=== PATIENT | female | born 1970 | race Caucasian/White ===

== ENCOUNTER → 2018-09-05 | Outpatient (CLI) | payer OTHER ==
[~2018-09-05] MED LIST: AMIT10 PO; Cipro500 MG PO; Excedrin Extra1 EACH PO; GABA300 PO; GABA600 PO; HYDR1TAB94 PO; IBUP800 PO; Ibuprofen Ib200 MG PO; LEVO750 PO; METF500 PO; METR500 PO; Norco 5-325 Ta1 EACH PO; PANT40 PO
[2018-09-05 19:35] LABS: Anion Gap 8 mmol/L (6-16); Blood Urea Nitrogen 10 mg/dL (8-24); Bun/Creatinine Ratio 17.9 (12.0-20.0); C-REACTIVE PROTEIN, EXT RANGE 0.771 mg/dL (0.000-0.300); CO2, Blood 23 mmol/L (21-32); Calcium, Blood 9.2 mg/dL (8.5-10.1); Chloride, Blood 103 mmol/L (98-108); Creatinine, Blood 0.56 mg/dL (0.40-1.00); Glomerular Filtration Rate >60 (60-); Glucose, Blood 311 mg/dL (70-99); Potassium, Blood 4.2 mmol/L (3.5-5.5); Sodium, Blood 134 mmol/L (136-145)
[2018-09-06 11:56] LABS: Antinuclear Antibody Screen Negative (Negative)
[2018-09-06 14:20] LABS: Rheumatoid Factor, Serum Negative (Negative)
== END | disposition home or self-care (01) ==
LOC: LAB 19:08 → LAB SHORT 19:08
PROVIDERS: Physician Assistant
DX: E11.9 Type 2 diabetes mellitus without complications (principal); M25.539 Pain in unspecified wrist
CPT/HCPCS: 80048; 83036; 85651; 86038; 86140; 86430

== ENCOUNTER 2020-01-29 12:31 | Emergency (ER) | payer OTHER ==
[~2020-01-29] VITALS: Ht 162.6 cm; Wt 64.4 kg
[2020-01-29 13:47] LABS: BASOPHILS PERCENT AUTO 1 % (0-2); EOSINOPHILS ABSOLUTE AUTO 0.22 K/mm3 (0.00-0.68); EOSINOPHILS PERCENT AUTO 2 % (0-6); Hematocrit 45.5 % (33.0-51.0); Hemoglobin 14.8 g/dL (11.5-16.0); IMMATURE GRAN ABSOLUTE AUTO 0.06 K/mm3 (0.00-0.10); IMMATURE GRAN PERCENT AUTO 1 % (0-1); LYMPHOCYTES ABSOLUTE AUTO 3.19 K/mm3 (0.84-5.20); LYMPHOCYTES PERCENT AUTO 33 % (21-46); MONOCYTES ABSOLUTE AUTO 0.43 K/mm3 (0.16-1.47); MONOCYTES PERCENT AUTO 5 % (4-13); Mean Corpuscular HGB 28.6 pg (26.0-34.0); Mean Corpuscular HGB Conc 32.5 g/dL (31.5-36.5); Mean Corpuscular Volume 88 fL (80-100); Mean Platelet Volume 10.6 fL (9.1-12.4); NEUTROPHILS ABSOLUTE AUTO 5.59 K/mm3 (1.96-9.15); NEUTROPHILS PERCENT AUTO 58 % (41-73); Platelet Count 271 K/mm3 (150-400); RDW Coefficient Variation 13.5 % (11.7-14.2); RDW Standard Deviation 43.2 fL (35.1-46.3); Red Blood Cell Count 5.18 M/mm3 (3.80-5.20); White Blood Cell Count 9.59 K/mm3 (4.00-11.30)
[2020-01-29 13:59] LABS: Appearance, Urine Cloudy (Clear); Bilirubin, Urine Neg (Neg); Blood, Urine 2+ (Neg); Color, Urine Yellow (P-Yellow); Glucose Qualitative, Urine 4+ (Neg); Ketones, Urine 1+ (Neg); Leukocyte Esterase, Urine 3+ (Neg); Nitrite, Urine Pos (Neg); Protein, Urine 2+ (Neg); Urobilinogen, Urine 1+ (Normal)
[2020-01-29 14:03] LABS: Alanine Aminotransfer (ALT/SGP 41 U/L (12-78); Albumin, Blood 3.9 g/dL (3.4-5.0); Alk Phos 200 U/L (50-136); Anion Gap 3 mmol/L (6-16); Aspartate Aminotrans (AST/SGOT 25 U/L (12-37); Bilirubin, Total 0.6 mg/dL (0.1-1.0); Blood Urea Nitrogen 15 mg/dL (8-24); Bun/Creatinine Ratio 24.6 (12.0-20.0); CO2, Blood 27 mmol/L (21-32); Calcium, Blood 9.6 mg/dL (8.5-10.1); Chloride, Blood 105 mmol/L (98-108); Creatinine, Blood 0.61 mg/dL (0.40-1.00); Globulin, Blood 3.9 g/dL (2.2-4.0); Glomerular Filtration Rate >60 (60-); Glucose, Blood 334 mg/dL (70-99); Sodium, Blood 135 mmol/L (136-145); Total Protein, Blood 7.8 g/dL (6.4-8.2)
[2020-01-29 14:42] LABS: Bacteria Many /hpf; Squamous Epithelial Cells Few /hpf (Few); White Blood Cells, Urine TNTC /hpf (0-5)
[2020-01-29] MEDS ORDERED: NOVOLOG FL100 UNIT/3 (15:21)
[2020-01-29] MEDS ORDERED: BASAGLAR K100 UNIT/1 (15:22)
[2020-01-29] MEDS ORDERED: Norco 5-325 Ta1 EACH PO (15:56)
[2020-01-29] MEDS ORDERED: CEPH500 PO (15:56)
[2020-01-29] MEDS ORDERED: Pyridium200 MG PO (15:56)
== END 2020-01-29 16:09 | disposition home or self-care (01) ==
LOC: ER 12:31
PROVIDERS: Emergency Medicine
DX: N39.0 Urinary tract infection, site not specified (principal); E11.9 Type 2 diabetes mellitus without complications; F17.210 Nicotine dependence, cigarettes, uncomplicated
CPT/HCPCS: 36415; 80053; 81001; 85025; 87077; 87086; 87186; 99284

== ENCOUNTER 2020-04-28 11:39 | Day surgery (SDC) | payer OTHER ==
[~2020-04-28] VITALS: Ht 162.6 cm; Wt 65.0 kg
[~2020-04-28 11:39] MED LIST changes: +ALBU90OI INH; +ATOR80 PO; +BASAGLAR K100 UNIT/1; +BASAGLAR K100 UNIT/7 SC; +CEPH500 PO; +MELATONIN5 M1; +NOVOLOG FL100 UNIT/3; +Pyridium200 MG PO; +SUMA25 PO
== END 2020-04-28 14:12 | disposition home or self-care (01) ==
LOC: ORSCSDS 11:39
PROVIDERS: Internal Medicine Gastroenterology
PROC: 0DBM8ZX Excision of Descending Colon, Via Natural or Artificial Opening Endoscopic, Diagnostic (ICD-10-PCS; principal; 2020-04-28 10:45)
PROC: 0DB78ZX Excision of Stomach, Pylorus, Via Natural or Artificial Opening Endoscopic, Diagnostic (ICD-10-PCS; principal; 2020-04-28 10:45)
PROC: 0DB58ZX Excision of Esophagus, Via Natural or Artificial Opening Endoscopic, Diagnostic (ICD-10-PCS; principal; 2020-04-28 10:45)
DX: K22.70 Barrett's esophagus without dysplasia (principal); K44.9 Diaphragmatic hernia without obstruction or gangrene; D12.4 Benign neoplasm of descending colon; R19.4 Change in bowel habit; R11.10 Vomiting, unspecified; K64.1 Second degree hemorrhoids; K31.89 Other diseases of stomach and duodenum; I10 Essential (primary) hypertension; E78.5 Hyperlipidemia, unspecified; J44.9 Chronic obstructive pulmonary disease, unspecified; F17.210 Nicotine dependence, cigarettes, uncomplicated; Z79.4 Long term (current) use of insulin; Z79.899 Other long term (current) drug therapy; E11.43 Type 2 diabetes mellitus with diabetic autonomic (poly)neuropathy; E11.65 Type 2 diabetes mellitus with hyperglycemia; K31.84 Gastroparesis
CPT/HCPCS: 82947; 88305; 88313; 88342; J2250; J2704; J7120

== ENCOUNTER → 2020-09-29 | Outpatient (CLI) | payer OTHER ==
[2020-09-29 18:59] LABS: Appearance, Urine Clear (Clear); Bilirubin, Urine Neg (Neg); Blood, Urine Neg (Neg); Color, Urine Yellow (P-Yellow); Glucose Qualitative, Urine 4+ (Neg); Ketones, Urine Neg (Neg); Leukocyte Esterase, Urine 2+ (Neg); Nitrite, Urine Neg (Neg); Protein, Urine 1+ (Neg); Urobilinogen, Urine NORM (Normal)
[2020-09-29 19:09] LABS: Bacteria Few /hpf; Red Blood Cells, Urine 0-2 /hpf (0-2); Squamous Epithelial Cells Few /hpf (Few)
== END | disposition home or self-care (01) ==
LOC: LAB 14:30 → LAB SHORT 14:30
PROVIDERS: Family Medicine
DX: R10.31 Right lower quadrant pain (principal)
CPT/HCPCS: 81001; 87077; 87086; 87186

== ENCOUNTER 2023-03-29 12:57 | Emergency (ER) | payer OTHER ==
[~2023-03-29] VITALS: Ht 162.6 cm; Wt 52.2 kg
[2023-03-29 13:42] LABS: BASOPHILS PERCENT AUTO 1 % (0-2); EOSINOPHILS ABSOLUTE AUTO 0.22 K/mm3 (0.00-0.68); EOSINOPHILS PERCENT AUTO 3 % (0-6); Hematocrit 43.1 % (33.0-51.0); Hemoglobin 14.3 g/dL (11.5-16.0); IMMATURE GRAN ABSOLUTE AUTO 0.01 K/mm3 (0.00-0.10); IMMATURE GRAN PERCENT AUTO 0 % (0-1); LYMPHOCYTES ABSOLUTE AUTO 2.79 K/mm3 (0.84-5.20); LYMPHOCYTES PERCENT AUTO 37 % (21-46); MONOCYTES ABSOLUTE AUTO 0.46 K/mm3 (0.16-1.47); MONOCYTES PERCENT AUTO 6 % (4-13); Mean Corpuscular HGB 28.8 pg (26.0-34.0); Mean Corpuscular HGB Conc 33.2 g/dL (31.5-36.5); Mean Corpuscular Volume 87 fL (80-100); Mean Platelet Volume 10.5 fL (9.1-12.4); NEUTROPHILS ABSOLUTE AUTO 4.06 K/mm3 (1.96-9.15); NEUTROPHILS PERCENT AUTO 53 % (41-73); Platelet Count 231 K/mm3 (150-400); RDW Coefficient Variation 13.2 % (11.7-14.2); RDW Standard Deviation 41.3 fL (35.1-46.3); Red Blood Cell Count 4.97 M/mm3 (3.80-5.20); White Blood Cell Count 7.64 K/mm3 (4.00-11.30)
[2023-03-29 14:02] LABS: Albumin, Blood 3.6 g/dL (3.4-5.0); Albumin/Globulin Ratio 0.9 (0.8-1.8); Bilirubin, Total 0.4 mg/dL (0.1-1.0); Calcium, Blood 9.2 mg/dL (8.5-10.1); Creatinine, Blood 0.53 mg/dL (0.40-1.00); Potassium, Blood 4.8 mmol/L (3.5-5.5); Total Protein, Blood 7.6 g/dL (6.4-8.2)
[2023-03-29 15:02] LABS: Source, Urine Clean Catch
[2023-03-29 15:21] LABS: Appearance, Urine Clear (Clear); Bilirubin, Urine Neg (Neg); Blood, Urine Neg (Neg); Color, Urine Yellow (P-Yellow); Glucose Qualitative, Urine 4+ (Neg); Ketones, Urine Neg (Neg); Leukocyte Esterase, Urine 1+ (Neg); Nitrite, Urine Neg (Neg); Protein, Urine Neg (Neg); Specific Gravity, Urine 1.015 (1.003-1.022); Urobilinogen, Urine NORM (Normal)
[2023-03-29 16:00] LABS: Bacteria Mod /hpf; Mucus Light (0-Heavy); Red Blood Cells, Urine 0-2 /hpf (0-2); Squamous Epithelial Cells Few /hpf (Few); Transitional Epithelial Cells Rare /hpf (0-Rare)
[2023-03-29] MEDS ORDERED: ATOR40TA PO (16:13)
[2023-03-29 16:29] LABS: International Normalized Ratio 0.93; Prothrombin Time Results 9.8 Sec (9.7-11.5)
[2023-03-29 17:00] VITALS: BP 142/96
[2023-03-29] MEDS ORDERED: Percocet 5-3251 EACH PO (17:10)
[2023-03-29] MEDS ORDERED: ONDA4ODT MM (17:10)
[2023-03-29] MEDS ORDERED: CEFD300 PO (17:13)
== END 2023-03-29 17:46 | disposition home or self-care (01) ==
LOC: ER 12:57
PROVIDERS: Emergency Medicine
DX: D73.5 Infarction of spleen (principal); N39.0 Urinary tract infection, site not specified; I73.9 Peripheral vascular disease, unspecified; E11.9 Type 2 diabetes mellitus without complications; E78.00 Pure hypercholesterolemia, unspecified; M79.7 Fibromyalgia; F17.210 Nicotine dependence, cigarettes, uncomplicated; Z79.4 Long term (current) use of insulin; Z79.84 Long term (current) use of oral hypoglycemic drugs; Z79.899 Other long term (current) drug therapy
CPT/HCPCS: 74177; 80053; 81001; 83690; 85025; 85610; 85730; 87077; 87086; 87147; 87186; 93005; 93010; 99284-25; J2270; J2405; Q9967

== ENCOUNTER 2023-09-15 13:47 | Inpatient (IN) | payer OTHER ==
[~2023-09-15] VITALS: Ht 162.6 cm; Wt 49.6 kg
[~2023-09-15 13:47] MED LIST changes: +ATOR40TA PO; +CEFD300 PO; +ONDA4ODT MM; +Percocet 5-3251 EACH PO
[2023-09-15 15:15] LABS: Source, Urine Clean Catch
[2023-09-15 15:18] LABS: Hematocrit 40.2 % (33.0-51.0); Hemoglobin 13.9 g/dL (11.5-16.0); Mean Corpuscular HGB 29.8 pg (26.0-34.0); Mean Corpuscular HGB Conc 34.6 g/dL (31.5-36.5); Mean Corpuscular Volume 86 fL (80-100); Mean Platelet Volume 12.3 fL (9.1-12.4); Platelet Count 190 K/mm3 (150-400); RDW Coefficient Variation 12.9 % (11.7-14.2); RDW Standard Deviation 40.7 fL (35.1-46.3); Red Blood Cell Count 4.66 M/mm3 (3.80-5.20); White Blood Cell Count 11.44 K/mm3 (4.00-11.30)
[2023-09-15 15:29] LABS: Appearance, Urine Hazy (Clear); Bilirubin, Urine Neg (Neg); Blood, Urine 3+ (Neg); Color, Urine Yellow (P-Yellow); Glucose Qualitative, Urine 4+ (Neg); Ketones, Urine 3+ (Neg); Leukocyte Esterase, Urine 1+ (Neg); Nitrite, Urine Pos (Neg); Protein, Urine 1+ (Neg); Urobilinogen, Urine NORM (Normal)
[2023-09-15 15:31] LABS: Magnesium, Blood 2.2 mg/dL (1.6-2.4)
[2023-09-15 15:35] LABS: Albumin, Blood 2.6 g/dL (3.4-5.0); Albumin/Globulin Ratio 0.5 (0.8-1.8); Bun/Creatinine Ratio 20.2 (12.0-20.0); Calcium, Blood 9.8 mg/dL (8.5-10.1); Creatinine, Blood 0.59 mg/dL (0.40-1.00); Globulin, Blood 5.1 g/dL (2.2-4.0); Potassium, Blood 3.4 mmol/L (3.5-5.5); Total Protein, Blood 7.7 g/dL (6.4-8.2)
[2023-09-15 16:04] LABS: Bacteria Many /hpf; Mucus Light (0-Heavy); Squamous Epithelial Cells Few /hpf (Few); White Blood Cells, Urine 25-50 /hpf (0-5)
[2023-09-15] MEDS ORDERED: Metoclopramide HCl 5MG / ML 2ML Vial IV ONE (16:05)
[2023-09-15] MEDS ORDERED: HYDROmorphone HCl/Pf 1MG SYR IV ONE (16:05)
[2023-09-15] MEDS ORDERED: NS 1,000 ML IV SCH ×2 (16:05→20:05)
[2023-09-15] MEDS ORDERED: CefTRIAXone Sodium 1,000 MG in NS 100 ML IV ONE (16:05)
[2023-09-15 16:09] LABS: BAND PERCENT MAN 13 % (0-8); BASOPHILS PERCENT MAN 0 % (0-2); EOSINOPHILS PERCENT MAN 0 % (0-6); LYMPHOCYTES ABSOLUTE MAN 1.02 K/mm3 (0.84-5.20); LYMPHOCYTES PERCENT MAN 9 % (21-46); MONOCYTES ABSOLUTE MAN 0.34 K/mm3 (0.16-1.47); MONOCYTES PERCENT MAN 3 % (4-13); NEUTROPHILS ABSOLUTE MAN 10.06 K/mm3 (1.96-9.15); SEG NEUTROPHILS PERCENT MAN 75 % (41-73); TOTAL CELLS COUNTED 100
[2023-09-15] MEDS ORDERED: Lactated Ringer's 1,000 ML IV SCH (17:35)
[2023-09-15] MEDS ORDERED: FentaNYL Citrate 50 MCG/ML 2 ML Injection IV PRN (17:35)
[2023-09-15] MEDS ORDERED: Acetaminophen 325 MG TABLET PO PRN (17:40)
[2023-09-15] MEDS ORDERED: Ondansetron HCl 2 MG / ML 2ML Vial IV PRN (17:40)
[2023-09-15] MEDS ORDERED: OxyCODONE HCL 5 MG TAB PO PRN (17:40)
[2023-09-15] MEDS ORDERED: SUMAtriptan succinate 50 MG Tab PO PRN (17:45)
[2023-09-15] MEDS ORDERED: Albuterol 2.5 MG/3 ML VIAL INH PRN (17:45)
[2023-09-15] MEDS ORDERED: NS 500 ML IV ONE (18:00)
[2023-09-15] MEDS ORDERED: Potassium Chloride 20 MEQ TabCR PO ONE (18:00)
[2023-09-15] MEDS ORDERED: Insulin Glargine-Yfgn 100 Unit/mL 3 ML SYR SC ONE (18:00)
[2023-09-15] MEDS ORDERED: Ketorolac Tromethamine 15mg Vial IV PRN (18:05)
[2023-09-15 18:33] LABS: U Amphetamine Screen Not Detected
[2023-09-15 18:34] LABS: U Barbituate Screen Not Detected; U Benzodiazapine Screen Not Detected; U Buprenorphine Screen Not Detected; U Cannabinoids Screen Not Detected; U Cocaine Screen Not Detected; U Methadone Screen Not Detected; U Methamphetamine Screen Not Detected; U Opiates Screen Not Detected; U Oxycodone Screen Not Detected; U Phencyclidine Screen Not Detected
[2023-09-15] MEDS ORDERED: Insulin Human Lispro 100 Units/ML 3ML Syringe SC SCH (20:00)
[2023-09-15] MEDS ORDERED: Sennosides 8.6 MG Tab PO SCH (21:00)
[2023-09-15] MEDS ORDERED: Lactobacil 2-S.Thermo-Bifido 1 1 Cap PO SCH (21:00)
[2023-09-15] MEDS ORDERED: Gabapentin 300 MG Cap PO SCH (21:00)
[2023-09-15 21:11] VITALS: BP 144/79
[2023-09-15 21:15] VITALS: BP 144/79
[2023-09-16] VITALS (7 sets, daily range): BP systolic 98–121; BP diastolic 60–81
[2023-09-16 03:52] LABS: Hematocrit 34.3 % (33.0-51.0); Hemoglobin 11.5 g/dL (11.5-16.0); Mean Corpuscular HGB Conc 33.5 g/dL (31.5-36.5); Mean Corpuscular Volume 87 fL (80-100); Mean Platelet Volume 11.5 fL (9.1-12.4); Platelet Count 160 K/mm3 (150-400); RDW Coefficient Variation 13.2 % (11.7-14.2); RDW Standard Deviation 41.9 fL (35.1-46.3); Red Blood Cell Count 3.96 M/mm3 (3.80-5.20); White Blood Cell Count 10.48 K/mm3 (4.00-11.30)
[2023-09-16 04:21] LABS: Albumin/Globulin Ratio 0.5 (0.8-1.8); Bun/Creatinine Ratio 17.8 (12.0-20.0); Calcium, Blood 8.8 mg/dL (8.5-10.1); Creatinine, Blood 0.51 mg/dL (0.40-1.00); Globulin, Blood 3.9 g/dL (2.2-4.0); Potassium, Blood 3.3 mmol/L (3.5-5.5); Total Protein, Blood 5.9 g/dL (6.4-8.2)
[2023-09-16 05:41] LABS: BAND PERCENT MAN 15 % (0-8); BASOPHILS PERCENT MAN 0 % (0-2); EOSINOPHILS PERCENT MAN 1 % (0-6); LYMPHOCYTES ABSOLUTE MAN 1.36 K/mm3 (0.84-5.20); LYMPHOCYTES PERCENT MAN 13 % (21-46); MONOCYTES ABSOLUTE MAN 1.04 K/mm3 (0.16-1.47); MONOCYTES PERCENT MAN 10 % (4-13); NEUTROPHILS ABSOLUTE MAN 7.96 K/mm3 (1.96-9.15); SEG NEUTROPHILS PERCENT MAN 61 % (41-73); TOTAL CELLS COUNTED 100
[2023-09-16] MEDS ORDERED: Pantoprazole Sodium 40 MG Tab PO SCH (06:00)
--- NOTE | 2023-09-16 06:38 | NUR ---
SHIFT SUMMARY PATIENT ALERT AND ORIENTED x4, COOPERATIVE WITH CARES, ABLE TO APPROPRIATELY EXPRESS NEEDS. COMPLAINS OF RIGHT FLANK PAIN - PAIN MANAGED WITH PRN PAIN MEDS PER ORDERS. PLEASE SEE MAR FOR DETAILS. PATIENT ALSO HAS MIGRAINES, SHE TAKES IMITREX AT HOME FOR THIS. ONLY HAD A ONE TIME DOSE AVAILABLE FOR THIS NIGHT. BLOOD GLUCOSE STABLE NOW, LAST 190. Q4 GLUCOSE CHECKS ORDERED. PATIENT APPEARED TO REST COMFORTABLY THROUGHOUT THE NIGHT, INTERMITTENTLY WAKING DUE TO PAIN. NO ACUTE EVENTS THIS SHIFT.
[2023-09-16] MEDS ORDERED: Potassium Chloride 20 MEQ TabCR PO ONE (07:30)
[2023-09-16] MEDS ORDERED: Enoxaparin 40 MG/0.4 ML SYR SC SCH (09:00)
[2023-09-16] MEDS ORDERED: Aspirin 81 MG Chew PO SCH (09:00)
[2023-09-16] MEDS ORDERED: Insulin Glargine-Yfgn 100 Unit/mL 3 ML SYR SC SCH ×2 (09:00→21:00)
[2023-09-16] MEDS ORDERED: Atorvastatin 40 MG Tab PO SCH (09:00)
--- NOTE | 2023-09-16 11:00 | NUR ---
PATIENT REPORTS CONTINUED PAIN THAT REQUIRES MEDICATION ADMINISTRATION DUE TO RIGHT FLANK PAIN. SHE IS A/O X4. ANSWERS QUESTIONS APPROPRIATELY IN FULL SENTENCES. EVEN, NON-LABORED CHEST RISE AND AND FALL NOTED. SHE WAS REMOVED FROM NASAL CANNULA THIS AM, SHE IS NOT ON O2 AT BASELINE. SHE DENIES CP AND SOB. LR WAS D/C THIS AM. SHE HAS A GOOD APPETITE. SINUS RHYTHM NOTED ON MONITOR. SHE IS CURRENTLY RESTING IN BED WITH EYES CLOSED.
[2023-09-16] MEDS ORDERED: SUMAtriptan succinate 50 MG Tab PO PRN (14:15)
[2023-09-16] MEDS ORDERED: Metoclopramide HCl 5MG / ML 2ML Vial IV ONE (15:00)
[2023-09-16] MEDS ORDERED: CefTRIAXone Sodium 1,000 MG in NS 100 ML IV SCH (16:00)
[2023-09-16] MEDS ORDERED: Insulin Human Lispro 100 Units/ML 3ML Syringe SC SCH (16:30)
--- NOTE | 2023-09-16 17:27 | NUR ---
PT HAS COMPLAINED OF MIGRAINE THIS SHIFT, SHE REPORTS HISTORY OF MIGRAINES, SHE WAS TREATED LAST NOC FOR MIGRAINE WITH IMITREX WHICH SHE STATES HELPED FOR AROUND AN HOUR. SHE AGAIN COMPLAINED OF MIGRAINE THIS AFTERNOON SHE WAS TREATED WITH IMITREX AND THEN REGLAN, SHE REPORTS THAT THIS DID NOT RELIEVE MIGRAINE. SHE REPORTS THAT HER FLANK PAIN HAS NOT BEEN BAD ENOUGH TO TAKE ROXICODONE THIS EVENING, SHE STATES "I'D LIKE TO SEE IF I CAN GO WITHOUT IT". HEADACHE IS SEEM TO INCREASE AFTER ROXICODONE HAD WORN OFF FROM THIS AM. SHE OTHERWISE HAS BEEN RESTING WELL IN BED FOR THIS SHIFT. SHE WAS AFEBRILE T/O THE DAY, WITH SINUS RHYTHM. THIS EVEN BEGAN TO RUN A FEVER, SHE WAS TREATED WITH TYLENOL FOR FEVER, WILL REASSESS TEMPERATUTE
[2023-09-17 00:11] VITALS: BP 93/66
[2023-09-17 03:49] LABS: Hematocrit 30.7 % (33.0-51.0); Hemoglobin 10.1 g/dL (11.5-16.0); Mean Corpuscular HGB 29.1 pg (26.0-34.0); Mean Corpuscular HGB Conc 32.9 g/dL (31.5-36.5); Mean Corpuscular Volume 89 fL (80-100); Platelet Count 160 K/mm3 (150-400); RDW Coefficient Variation 13.5 % (11.7-14.2); RDW Standard Deviation 43.8 fL (35.1-46.3); Red Blood Cell Count 3.47 M/mm3 (3.80-5.20); White Blood Cell Count 12.22 K/mm3 (4.00-11.30)
[2023-09-17 04:22] LABS: Albumin, Blood 1.8 g/dL (3.4-5.0); Anion Gap 9 mmol/L (3-11); Blood Urea Nitrogen 14 mg/dL (8-24); Bun/Creatinine Ratio 27.6 (12.0-20.0); CO2, Blood 24 mmol/L (21-32); Calcium, Blood 8.7 mg/dL (8.5-10.1); Chloride, Blood 108 mmol/L (98-108); Creatinine, Blood 0.51 mg/dL (0.40-1.00); Glomerular Filtration Rate 114 (60-); Glucose, Blood 197 mg/dL (70-99); Magnesium, Blood 1.9 mg/dL (1.6-2.4); Phosphorus, Blood 2.2 mg/dL (2.5-4.9); Potassium, Blood 3.5 mmol/L (3.5-5.5); Sodium, Blood 137 mmol/L (136-145)
[2023-09-17 04:26] VITALS: BP 97/65
--- NOTE | 2023-09-17 05:09 | NUR ---
SHIFT SUMMARY NO ACUTE EVENTS T/O NIGHT. PT A/O X 4. CALM ADN COOPERATIVE WITH CARE. ENDORSES STILL FEELING WEAK AND DIZZY UPON STANDING. 1 ASSIST WHEN OBB AMBULATING. VSS. ON RA WITH SPO2 GREATER THEN 92%. C/O RIGHT FLANK PAIN. MEDICATED PER EMAR. DENIED N/V THIS SHIFT. STATES "IT COMES AND GOES". WILL REPORT OFF TO ONCOMING RN.
[2023-09-17 07:39] VITALS: BP 96/70
[2023-09-17] MEDS ORDERED: Nicotine 21 MG PATCH TOP SCH (09:00)
[2023-09-17 12:59] VITALS: BP 114/78
[2023-09-17 15:08] VITALS: BP 116/77
--- NOTE | 2023-09-17 18:28 | NUR ---
PT HAS BEEN RESTING WELL IN BED T/O THE DAY. VSS. SHE REPORTS INTERMITTENT HEADACHE THAT SHE HAS REQUESTED IMITREX AND TORADOL WHICH WERE NOT LARGELY BENEFICIAL IN PAIN CONTROL. SHE ALSO REPORTS 8-10 PAIN TO RIGHT FLANK THAT WAS TREATED WITH ROXICODONE THAT WAS MINIMALLY HELPFUL IN PAIN MANAGEMENT. VSS. SHE HAS BEEN INDEPENDANT TO BATHROOM. EATING AND DRINKING WELL
[2023-09-17 20:07] VITALS: BP 118/80
--- NOTE | 2023-09-17 20:33 | NUR ---
ASSUMED CARE PT IS A&O X4; SPO2 >92% ON RA; MAP >65. PT DENIES CP AND NAUSEA. STATES MILD SOB THAT HAS BEEN PRESENT SINCE ADMIT, DOES NOT APPEAR IN ANY RESPIRATORY DISTRESS. COMPLAINING OF 8/10 PAIN IN LOWER RIGHT ABDOMINAL QUADRANT THAT "COMES AND GOES".
[2023-09-18 00:07] VITALS: BP 105/73
[2023-09-18] MEDS ORDERED: Morphine Sulfate 4 MG/1 ML Injection IV ONE (00:45)
[2023-09-18 04:46] VITALS: BP 110/79
--- NOTE | 2023-09-18 05:36 | NUR ---
SHIFT SUMMARY PT RESTED QUIETLY T/O NIGHT. CONTINUES TO COMPLAIN OF RLQ ABDOMINAL PAIN. VSS, NO ACUTE EVENTS OVERNIGHT. AMBULATED WELL TO RESTROOM. REMAINS A&O X4
[2023-09-18] MEDS ORDERED: Piperacillin/Tazobactam Sod 4.5 GM in NS 100 ML IV SCH (06:00)
--- NOTE | 2023-09-18 08:36 | NUR ---
PT MEDICATED PER EMAR.
[2023-09-18 08:50] VITALS: BP 111/75
--- NOTE | 2023-09-18 09:06 | NUR ---
AM NOTE... ASSUMED CARE OF PT AT 0700. PT IS A&Ox4. SHE IS IN SR IN THE 80'S-90'S BP STABLE. PT C/O OF 8/10 RLQ AND RIGHT FLANK PAIN. PT IS ON RA WITH O2 SATS>90% L/S CLEAR IN THE UPPER LOBES FINE CRACKLES NOTED IN THE LOWER LOBES. PT IS SBA IN THE ROOM. PROVIDER AT THE BEDSIDE TO ASSESS PT, NEW ORDERS FOR MED STATUS NO TELE. WILL CONTINUE TO MONITOR.
[2023-09-18 12:15] VITALS: BP 143/93
--- NOTE | 2023-09-18 12:45 | NUR ---
ASSUMED CARE OF PT WHILE PRIMARY RN TO LUNCH. PT RESTING IN BED WITH LIGHTS DIMMED, PLAN TO MEDICATE FOR MIGRAINE ONCE MEDICATION ARRIVES FROM PHARMACY. PT VSS. CALL LIGHT IN REACH
[2023-09-18 16:22] VITALS: BP 121/79
--- NOTE | 2023-09-18 16:31 | NUR ---
SHIFT SUMMARY/PT TRANSFER.... PT'S VS HAVE BEEN STABLE T/O THIS SHIFT. PT HAS BEEN IND TO THE BATHROOM AND BACK. PT HAS BEEN MEDICATED FOR PAIN PER EMAR WITH MINIMAL RESULTS PER THE PT. REPORT WAS GIVEN TO TDOD DELGADO. ALL PT'S BELONGINGS WERE PACKED AND SENT WITH THE PT.
[2023-09-18 19:48] VITALS: BP 116/78
[2023-09-19 04:37] VITALS: BP 116/67
[2023-09-19 05:07] LABS: Hematocrit 32.7 % (33.0-51.0); Mean Corpuscular HGB 29.1 pg (26.0-34.0); Mean Corpuscular HGB Conc 33.6 g/dL (31.5-36.5); Mean Corpuscular Volume 87 fL (80-100); Mean Platelet Volume 10.3 fL (9.1-12.4); Platelet Count 256 K/mm3 (150-400); RDW Coefficient Variation 13.8 % (11.7-14.2); RDW Standard Deviation 43.6 fL (35.1-46.3); Red Blood Cell Count 3.78 M/mm3 (3.80-5.20); White Blood Cell Count 9.88 K/mm3 (4.00-11.30)
[2023-09-19 05:37] LABS: Albumin, Blood 1.8 g/dL (3.4-5.0); Anion Gap 7 mmol/L (3-11); Blood Urea Nitrogen 11 mg/dL (8-24); Bun/Creatinine Ratio 25.1 (12.0-20.0); CO2, Blood 27 mmol/L (21-32); Calcium, Blood 8.6 mg/dL (8.5-10.1); Chloride, Blood 108 mmol/L (98-108); Creatinine, Blood 0.44 mg/dL (0.40-1.00); Glomerular Filtration Rate 118 (60-); Glucose, Blood 130 mg/dL (70-99); Phosphorus, Blood 3.8 mg/dL (2.5-4.9); Potassium, Blood 3.1 mmol/L (3.5-5.5); Sodium, Blood 139 mmol/L (136-145)
[2023-09-19] MEDS ORDERED: Potassium Chloride 20 MEQ TabCR PO ONE (07:25)
[2023-09-19 07:26] VITALS: BP 114/73
--- NOTE | 2023-09-19 07:57 | NUR ---
SHIFT SUMMARY PT IS A&OX4. VSS ON RA. NO ACUTE CHANGES OR EVENTS THIS SHIFT. C/O 9/10 PAIN IN RLQ, REQUESTED IV TORADOL. PT SLEPT MOST OF THE NOC. TOLERATING A CONS CARB DIET. BG AT HS WAS 239. SBA TO BR. PT STATES SHE FEELS UNSTEADY ON HER FEET. VOIDING IN TOILET, NO BM THIS SHIFT. BED IN LOWEST POSITION, CALL LIGHT WITHIN REACH. PT CALLS APPROPRIATELY.
[2023-09-19] MEDS ORDERED: Ketorolac Tromethamine 10 MG Tab PO PRN (09:10)
[2023-09-19 15:57] VITALS: BP 127/82
--- NOTE | 2023-09-19 18:47 | NUR ---
SHIFT SUMMARY- NO ACUTE CHANGE T/O THE SHIFT. 1PA TO THE BATHROOM. PT CURRENTLY IN BED, CALL LIGHT IN REACH NO S&S OF DISTRESS. PAIN MEDS GIVEN PRN. TORADOL SWITCHED TO PO AND SEEMS TO BE THE MOST EFFECTIVE MED.
[2023-09-19 21:13] VITALS: BP 126/82
[2023-09-20 04:29] VITALS: BP 117/81
[2023-09-20 04:58] LABS: Hematocrit 30.6 % (33.0-51.0); Hemoglobin 10.4 g/dL (11.5-16.0); Mean Corpuscular HGB 29.4 pg (26.0-34.0); Mean Corpuscular Volume 86 fL (80-100); Mean Platelet Volume 10.2 fL (9.1-12.4); Platelet Count 340 K/mm3 (150-400); RDW Coefficient Variation 13.8 % (11.7-14.2); Red Blood Cell Count 3.54 M/mm3 (3.80-5.20); White Blood Cell Count 11.21 K/mm3 (4.00-11.30)
[2023-09-20 05:21] LABS: Bun/Creatinine Ratio 19.3 (12.0-20.0); Calcium, Blood 8.5 mg/dL (8.5-10.1); Creatinine, Blood 0.42 mg/dL (0.40-1.00); Magnesium, Blood 1.4 mg/dL (1.6-2.4); Potassium, Blood 3.7 mmol/L (3.5-5.5)
--- NOTE | 2023-09-20 05:55 | NUR ---
SHIFT SUMMARY: Pt is admitted for pyelonephritis and is a full code. Is alert and able to make needs known. ADLs have been SBA. was given PRN pain management x2.
[2023-09-20] MEDS ORDERED: Magnesium Sulf 2 GM/Water 50ML 50 ML IV ONE (07:50)
[2023-09-20 07:57] VITALS: BP 113/72
[2023-09-20] MEDS ORDERED: Furosemide 10 MG / ML 2ML Vial IV ONE (08:00)
[2023-09-20] MEDS ORDERED: Protein Supplement 30 ML UD PO SCH (08:00)
[2023-09-20] MEDS ORDERED: Polyethylene Glycol 3350 17 gm PO SCH (08:00)
[2023-09-20] MEDS ORDERED: Ibuprofen 600 MG Tab PO PRN (09:15)
[2023-09-20] MEDS ORDERED: NS 250 ML IV PRN (09:15)
[2023-09-20 09:39] VITALS: BP 122/70
[2023-09-20 16:35] VITALS: BP 120/80
[2023-09-20 18:53] VITALS: BP 121/82
--- NOTE | 2023-09-20 18:59 | NUR ---
SHIFT SUMMARY- PT PAIN SEEMS TO BE BETTER MANAGED TODAY, THE ADDITION OF THE IBUPROFEN SEEMS TO HAVE REALLY HELPED. PT WAS SEEN BY PHYSICAL THERAPY AND CLEARED TO BE INDEPENDENT IN THE ROOM. PT IS CURRENTLY IN BED, CALL LIGHT IN REACH NO S&S OF DISTRESS NOTED.
[2023-09-21 05:23] VITALS: BP 115/80
--- NOTE | 2023-09-21 06:01 | NUR ---
SHIFT SUMMARY: Pt is admitted for pyelonephritis and is a full code. Is alert and able to make needs known. ADLs have been independent. was given PRN pain management x2.
[2023-09-21 07:11] VITALS: BP 132/84
[2023-09-21] MEDS ORDERED: CefTRIAXone Sodium 1,000 MG in NS 100 ML IV ONE (10:50)
[2023-09-21] MEDS ORDERED: IBUP600 PO (12:21)
[2023-09-21] MEDS ORDERED: CIPR500 PO (12:21)
[2023-09-21] MEDS ORDERED: LACT PO (12:22)
[2023-09-21] MEDS ORDERED: NICO21TP TOP (12:23)
[2023-09-21] MEDS ORDERED: MIRALAX1714 PO (12:24)
[2023-09-21] MEDS ORDERED: SENN187 PO (12:25)
[2023-09-21 14:06] VITALS: BP 109/74
--- NOTE | 2023-09-21 16:44 | NUR ---
DISCHARGE NOTE- PT WAS GIVEN VERBAL AND WRITTEN DISCHARGE INSTRUCTIONS AND ACKNOWLEDGED UNDERSTANDING OF THEM. IV DC'D PRIOR TO DISCHARGE. PT WAS ESCORTED OUT VIA WC, IV DC'D PRIOR TO DISCHARGE. NO S&S OF DISTRESS NOTED AT THE TIME OF DISCHARGE.
== END 2023-09-21 15:28 | disposition home or self-care (01) | DRG 872 ==
LOC: ER 13:47 → PCU 17:31 → MEDS 17:31 → PCU 21:17 → MEDS 09-18 16:48
PROVIDERS: Internal Medicine; Nurse Practitioner Acute Care; Physician Assistant; ADMIT Internal Medicine
DX: A41.51 Sepsis due to Escherichia coli [E. coli] (principal); N10 Acute pyelonephritis; E44.0 Moderate protein-calorie malnutrition; E87.1 Hypo-osmolality and hyponatremia; Z68.1 Body mass index [BMI] 19.9 or less, adult; G43.109 Migraine with aura, not intractable, without status migrainosus; J44.9 Chronic obstructive pulmonary disease, unspecified; M79.7 Fibromyalgia; E78.00 Pure hypercholesterolemia, unspecified; E11.65 Type 2 diabetes mellitus with hyperglycemia; F17.210 Nicotine dependence, cigarettes, uncomplicated; G43.909 Migraine, unspecified, not intractable, without status migrainosus; Z91.199 Patient's noncompliance with other medical treatment and regimen due to unspecified reason; E11.51 Type 2 diabetes mellitus with diabetic peripheral angiopathy without gangrene; K21.9 Gastro-esophageal reflux disease without esophagitis; E87.6 Hypokalemia; R74.01 Elevation of levels of liver transaminase levels; E78.5 Hyperlipidemia, unspecified; Z79.4 Long term (current) use of insulin; Z79.899 Other long term (current) drug therapy; Z79.891 Long term (current) use of opiate analgesic; Z85.41 Personal history of malignant neoplasm of cervix uteri; Z98.51 Tubal ligation status; Z90.49 Acquired absence of other specified parts of digestive tract; Z90.89 Acquired absence of other organs; Z98.890 Other specified postprocedural states
CPT/HCPCS: 36415; 71045; 74177; 80048; 80053; 80069; 81001; 82947; 83605; 83690; 83735; 83930; 84484; 85025; 85027; 87040; 87077; 87086; 87186; 93005; 93010; 94640; 94664; 94760; 94762; 96365-59; 96375; 99285-25; A9270; J0696; J1170; J1650; J1815; J1885; J1940; J2270; J2405; J2765; J3475; J7030; J7040; J7050; J7120; Q9967

== ENCOUNTER → 2023-12-04 | Outpatient (CLI) | payer OTHER ==
[~2023-12-04] MED LIST changes: +CIPR500 PO; +IBUP600 PO; +LACT PO; +MIRALAX1714 PO; +NICO21TP TOP; +SENN187 PO
[2023-12-04 15:41] LABS: Source, Urine Clean Catch
[2023-12-04 15:46] LABS: Appearance, Urine Clear (Clear); Bilirubin, Urine Neg (Neg); Blood, Urine Neg (Neg); Color, Urine Yellow (P-Yellow); Glucose Qualitative, Urine 4+ (Neg); Ketones, Urine Neg (Neg); Leukocyte Esterase, Urine 1+ (Neg); Nitrite, Urine Neg (Neg); Protein, Urine Neg (Neg); Urobilinogen, Urine NORM (Normal)
[2023-12-04 15:53] LABS: Bacteria Many /hpf; Red Blood Cells, Urine 0-2 /hpf (0-2); Squamous Epithelial Cells Few /hpf (Few); White Blood Cells, Urine 25-50 /hpf (0-5); Yeast/Fungi Urine Few /hpf
== END | disposition home or self-care (01) ==
LOC: LAB SHORT 13:42 → LAB 13:42
PROVIDERS: Family Medicine
DX: N30.10 Interstitial cystitis (chronic) without hematuria (principal)
CPT/HCPCS: 81001; 87077; 87086; 87186